=== PATIENT | male | born 1995 | race Caucasian/White ===

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

== ENCOUNTER 2017-08-30 10:48 | Emergency (ER) | payer BC ==
[~2017-08-30] VITALS: Ht 170.2 cm; Wt 61.3 kg
[~2017-08-30 10:48] MED LIST changes: +ALBU18002 INH; -ALBU1AER9 INH; -EPP3/2 IM; +GABA-1219 PO
[2017-08-30 10:55] VITALS: TEMP 36.6; Ht 170.2 cm; Wt 61.3 kg
[2017-08-30] MEDS ORDERED: KETOROLAC TROMETHAMINE 30 MG/ML VIAL IV STA (11:10)
[2017-08-30] MEDS ORDERED: SODIUM CHLORIDE 0.9% 500ML 500 ML IV STA (11:10)
[2017-08-30 11:22] VITALS: O2SAT 100
--- NOTE | 2017-08-30 11:25 | DIAGNOSTIC IMAGING REPORT ---
CHEST ONE VIEW PORTABLE CLINICAL HISTORY: Chest Pain dyspnea COMPARISON STUDY: 04/17/2014 FINDINGS: The bones soft tissues and hemidiaphragms are normal. The cardiomediastinal silhouette is normal. The lungs are clear. The pulmonary vasculature is normal. IMPRESSION: Negative chest. The above report was generated using voice recognition software. It may contain grammatical, syntax or spelling errors. Electronically signed by: Reagan Naidu M.D. 08/30/2017 11:24 AM Dictated Date/Time: 08/30/2017 11:24 AM
[2017-08-30 11:30] LABS: BASO % 0.1 %; BASO ABS # 0.01 K/uL (0-0.2); EOS % 0.3 %; EOS ABS # 0.02 K/uL (0-0.5); HEMATOCRIT 44.9 % (42-52); HEMOGLOBIN 16.5 g/dL (14.0-18.0); IG# 0.04 K/uL (0.00-0.02); LYMPH % 29.1 %; LYMPH ABS # 2.14 K/uL (1.2-3.4); MEAN CELL VOLUME 84.1 fL (80-100); MEAN CORPUSCULAR HEMOGLOBIN 30.9 pg (25-34); MEAN CORPUSCULAR HGB CONC 36.7 g/dl (32-36); MEAN PLATELET VOLUME 9.2 fL (7.4-10.4); MONO % 11.7 %; MONO ABS # 0.86 K/uL (0.11-0.59); NEUT % 58.3 %; NEUT ABS # 4.29 K/uL (1.4-6.5); PLATELET COUNT 201 K/uL (130-400); RED CELL DISTRIBUTION WIDTH CV 13.4 % (11.5-14.5); RED CELL DISTRIBUTION WIDTH SD 40.2 fL (36.4-46.3); WHITE BLOOD COUNT 7.36 K/uL (4.8-10.8)
[2017-08-30] MEDS ORDERED: METH4PAK PO (11:35)
[2017-08-30 11:49] LABS: BLOOD UREA NITROGEN 16 mg/dl (7-18); CALCIUM 9.1 mg/dl (8.5-10.1); CARBON DIOXIDE 29 mmol/L (21-32); CREATININE 0.99 mg/dl (0.60-1.40); GLUCOSE 93 mg/dl (70-99); POTASSIUM 3.8 mmol/L (3.5-5.1); SODIUM 137 mmol/L (136-145)
[2017-08-30 13:09] VITALS: BP 140/84; PULSE 63; O2SAT 100
--- NOTE | 2017-08-30 17:10 | EMERGENCY ROOM VISIT NOTE ---
History Report prepared by Qianibriya: Maria Del Rosario Frias Under the Supervision of: Dr. Tristin Garduno D.O. First contact with patient: 10:59 Chief Complaint: CHEST PAIN Stated Complaint: CHEST PAIN Nursing Triage Summary: estelita c/o midsternal chest pain x 3 months. patient states the last two days pain has increased and is now radiating to mid back. denies n/v/d. History of Present Illness The patient is a 21 year old male who presents to the Emergency Room with complaints of intermittent midsternal chest pain for the past 3 months. In the last 5 days, his pain has worsened and is now radiating to his mid back. He rates his discomfort as a 5/10 in severity and describes the pain as feeling "sharp". Movement, especially bending forward, worsens his pain. The patient reports he saw his PCP about a week ago and was given steroids, but they have provided no relief. Patient denies any swelling of calves, recent trips, history of immobilization or recent surgery, prior history of DVT, hemoptysis, history of malignancy or history of smoking. The patients Mother states she had a brother who at age 37 of atherosclerosis. Patient denies headache, change in vision, fevers, cough or cold symptoms, shortness of breath, nausea, vomiting, diarrhea, pain with urination, and melena. Source of History: patient, parent (Mother) Onset: 3 months DIRECTOR RISK Position: chest (midsternal) Symptom Intensity: 5/10 Quality: sharp Timing: intermittent Modifying Factors (Relieving): other (Steroids) Associated Symptoms: No fevers, No headache, No cough (cough or cold symptoms), No SOB, No nausea, No vomiting, No melena, No diarrhea, No urinary symptoms Review of Systems See HPI for pertinent positives & negatives. A total of 10 systems reviewed and were otherwise negative. Past Medical & Surgical Medical Problems: (1) No chronic problems (2) Palpitations Family History Heart disease Social History Smoking Status: Never Smoker Alcohol Use: occasionally Drug Use: none Marital Status: single Housing Status: lives with family Occupation Status: student Current/Historical Medications Scheduled Gabapentin (Gabapentin), 300 MG PO TID Methylprednisolone (Medrol Dosepak), 1 PKT PO UD Scheduled PRN Albuterol Sulfate (Proair Respiclick), 2 PUFFS INH QID PRN for Rescue Inhaler Allergies Coded Allergies: Amoxicillin (Verified Allergy, Mild, UNKNOWN, 08/30/17) BEE STING (Verified Allergy, Mild, UNKNOWN, 08/30/17) Sulfa Drugs (Verified Allergy, Mild, UNKNOWN, 08/30/17) Physical Exam Vital Signs Date Time Temp Pulse Resp B/P (MAP) Pulse Ox O2 Delivery O2 Flow Rate FiO2 08/30/17 13:09 63 18 140/84 100 08/30/17 12:14 65 18 145/88 100 Room Air 08/30/17 12:02 67 08/30/17 11:22 100 Room Air 08/30/17 11:18 98 Room Air 08/30/17 10:55 36.6 72 18 139/77 100 Room Air Physical Exam GENERAL: Sitting up in bed, alert, well appearing, well nourished, no distress, non-toxic EYE EXAM: normal conjunctiva. OROPHARYNX: no exudate, no erythema, lips, buccal mucosa, and tongue normal and mucous membranes are moist NECK: supple, no nuchal rigidity, no adenopathy, non-tender LUNGS: Clear to auscultation. Normal chest wall mechanics HEART: no murmurs, S1 normal and S2 normal ABDOMEN: abdomen soft, non-tender, normo-active bowel sounds, no masses, no rebound or guarding. CHEST: Acute reproducible tenderness from mid to distal sternum, same as stated complaint. BACK: Back is symmetrical on inspection and there is no deformity, no midline tenderness, no CVA tenderness. SKIN: no rashes and no bruising UPPER EXTREMITIES: upper extremities are grossly normal. LOWER EXTREMITIES: Radial pulses equal bilaterally. Calves equal bilaterally. No pitting edema. NEURO EXAM: Normal sensorium, cranial nerves II-XII grossly intact, normal speech, no gross weakness of arms, no gross weakness of legs. Gross sensation intact. Medical Decision & Procedures ER Provider Diagnostic Interpretation: Radiology results as stated below per my review and the radiologist's interpretation: CHEST ONE VIEW PORTABLE CLINICAL HISTORY: Chest Pain dyspnea COMPARISON STUDY: 04/17/2014 FINDINGS: The bones soft tissues and hemidiaphragms are normal. The cardiomediastinal silhouette is normal. The lungs are clear. The pulmonary vasculature is normal. IMPRESSION: Negative chest. The above report was generated using voice recognition software. It may contain grammatical, syntax or spelling errors. Electronically signed by: Reagan Naidu M.D. 08/30/2017 11:24 AM Laboratory Results 08/30/17 11:20 Red Blood Count 5.34, Mean Corpuscular Volume 84.1, Mean Corpuscular Hemoglobin 30.9, Mean Corpuscular Hemoglobin Concent 36.7, Mean Platelet Volume 9.2, Neutrophils (%) (Auto) 58.3, Lymphocytes (%) (Auto) 29.1, Monocytes (%) (Auto) 11.7, Eosinophils (%) (Auto) 0.3, Basophils (%) (Auto) 0.1, Neutrophils # (Auto ) 4.29, Lymphocytes # (Auto) 2.14, Monocytes # (Auto) 0.86, Eosinophils # (Auto ) 0.02, Basophils # (Auto) 0.01 08/30/17 11:20 Test 08/30/17 11:20 White Blood Count 7.36 K/uL (4.8-10.8) Red Blood Count 5.34 M/uL (4.7-6.1) Hemoglobin 16.5 g/dL (14.0-18.0) Hematocrit 44.9 % (42-52) Mean Corpuscular Volume 84.1 fL (80-100) Mean Corpuscular Hemoglobin 30.9 pg (25-34) Mean Corpuscular Hemoglobin Concent 36.7 g/dl (32-36) Platelet Count 201 K/uL (130-400) Mean Platelet Volume 9.2 fL (7.4-10.4) Neutrophils (%) (Auto) 58.3 % Lymphocytes (%) (Auto) 29.1 % Monocytes (%) (Auto) 11.7 % Eosinophils (%) (Auto) 0.3 % Basophils (%) (Auto) 0.1 % Neutrophils # (Auto) 4.29 K/uL (1.4-6.5) Lymphocytes # (Auto) 2.14 K/uL (1.2-3.4) Monocytes # (Auto) 0.86 K/uL (0.11-0.59) Eosinophils # (Auto) 0.02 K/uL (0-0.5) Basophils # (Auto) 0.01 K/uL (0-0.2) RDW Standard Deviation 40.2 fL (36.4-46.3) RDW Coefficient of Variation 13.4 % (11.5-14.5) Immature Granulocyte % (Auto) 0.5 % Immature Granulocyte # (Auto) 0.04 K/uL (0.00-0.02) D-Dimer < 190 ug/L FEU (0-500) Anion Gap 5.0 mmol/L (3-11) Est Creatinine Clear Calc Drug Dose 104.1 ml/min Estimated GFR () 127.4 Estimated GFR (Non- 110.0 BUN/Creatinine Ratio 15.8 (10-20) Calcium Level 9.1 mg/dl (8.5-10.1) Troponin I < 0.015 ng/ml (0-0.045) Laboratory results per my review. Medications Administered Medications (Trade) Dose Ordered Sig/Seb Route Start Time Stop Time Status Last Admin Dose Admin Sodium Chloride 500 ml @ 999 mls/hr Q31M STAT IV 08/30/17 11:10 08/30/17 11:40 DC 08/30/17 11:27 999 MLS/HR Ketorolac Tromethamine (Toradol Inj) 30 mg NOW STAT IV 08/30/17 11:10 08/30/17 11:11 DC 08/30/17 11:27 30 MG ECG Per My Interpretation Indication: chest pain Rate (beats per minute): 70 Rhythm: sinus rhythm Findings: no ectopy, other (normal axis) Change: Patient's electrocardiogram interpreted by me. ED Course ED COURSE: Vital signs were reviewed and showed normal vitals The patients medical record was reviewed The above diagnostic studies were performed and reviewed. ED treatments and interventions as stated above. 1104: The patient was evaluated in room C3. A complete history and physical examination was performed. 1110: Toradol 30 mg IV, NSS 500 ml @ 999 mls/hr IV. 1259: Upon reevaluation, the patient is resting comfortably. I discussed my findings with the patient and he understands and agrees with the treatment plan. Based on the patients age, coexisting illnesses, exam and lab findings the decision to treat as an outpatient was made. The patient remained stable while under my care. The patient appeared well at the time of discharge. Medical Decision Differential diagnoses includes but is not limited to acute coronary syndrome, myocardial infarction, pericarditis, pulmonary embolus, aortic dissection, pneumonia, pneumothorax, musculoskeletal, shingles, esophageal. Patient is a 21-year-old male who presents to ER for chest pain which has been present for the past 3 months. This has been constant now for the past 5 days. CBC along with BMP and troponin was negative. D-dimer was negative. EKG was unremarkable. Chest x-ray was normal. On exam he is clear reproducible anterior sternal pain. PCP placed him on steroids and I recommended continuing this in combination with Tylenol or Motrin. Discussed with Pt concerning signs and symptoms to watch out for. Pt was instructed to follow up with their PCP and discussed with the patient their option to return to the ED at anytime for persistent or worsening symptoms. The appropriate anticipatory guidance and out- patient management, including indications for return to the emergency department , were explained at length to the patient and understood. Medication Reconcilliation Current Medication List: was personally reviewed by me Blood Pressure Screening Patient's blood pressure: Elevated blood pressure Blood pressure disposition: Elevated BP felt to be situational Impression Primary Impression: Chest pain Scribe Attestation The scribe's documentation has been prepared under my direction and personally reviewed by me in its entirety. I confirm that the note above accurately reflects all work, treatment, procedures, and medical decision making performed by me. Departure Information Dispostion Home / Self-Care Referrals Antoine Gamez M.D. (PCP) Patient Instructions ED Chest Pain Costochondritis, My [facility] Additional Instructions Please follow up with your primary care doctor with in the next 24 hours. Any worsening of your symptoms, please return to the ED immediately. This includes any fevers greater than 100.4, worsening pain, chest pain, shortness breath, persistent nausea, vomiting, unable to eat or drink, or any other concerning signs or symptoms from your standpoint. Please take Motrin or Tylenol as needed for pain. Please follow-up with PCP. Problem Qualifiers Primary Impression: Chest pain Chest pain type: unspecified Qualified Codes: R07.9 - Chest pain, unspecified
== END 2017-08-30 13:10 | disposition home or self-care (01) ==
LOC: C.EDB 10:50 → C.EDC 13:10
DX: R07.9 Chest pain, unspecified (principal); Z82.49 Family history of ischemic heart disease and other diseases of the circulatory system; Z79.899 Other long term (current) drug therapy; Z88.1 Allergy status to other antibiotic agents; Z88.2 Allergy status to sulfonamides; Z91.030 Bee allergy status